=== PATIENT | female | born 1970 | race American Indian/Alaskan Native ===

== ENCOUNTER 2017-09-03 08:29 | Inpatient (IN) | payer BC ==
[2017-09-03] MEDS ORDERED: Sodium Chloride 0.9% 1,000 ML IV STA (09:44)
[2017-09-03 09:57] LABS: BASO # 0.1 K/uL (0.0-0.2); BASO % 0.8 % (0.0-2.0); EOS % 0.2 % (0.0-4.0); HEMOGLOBIN 13.6 g/dL (12.0-16.0); LYMPH # 1.3 K/uL (1.0-4.3); LYMPH % 12.3 % (20.0-40.0); MEAN CELL VOLUME 80.1 fl (81.0-99.0); MEAN CORPUSCULAR HEMOGLOBIN 27.6 pg (27.0-31.0); MEAN CORPUSCULAR HGB CONC 34.4 g/dL (33.0-37.0); MEAN PLATELET VOLUME 7.9 fl (7.2-11.7); MONO # 0.5 K/uL (0.0-0.8); MONO % 4.6 % (0.0-10.0); NEUT # 8.4 K/uL (1.8-7.0); NEUT % 82.1 % (50.0-75.0); NRBC % 0.1 % (0.0-0.0); RBC 4.93 Mil/uL (3.80-5.20); RED CELL DISTRIBUTION WIDTH 13.9 % (11.5-14.5); WHITE BLOOD COUNT 10.3 K/uL (4.8-10.8)
--- NOTE | 2017-09-03 09:58 | ED PDOC ---
HPI: Abdomen Time Seen by Provider: 09/03/17 09:06 Chief Complaint (Nursing): Abdominal Pain Chief Complaint (Provider): Abdominal Pain History Per: Patient History/Exam Limitations: no limitations Onset/Duration Of Symptoms: Days (x2) Current Symptoms Are (Timing): Still Present Additional Complaint(s): 47 year old female presents to the emergency department complaining of constant abdominal pain onset two days. Patient states today she experienced one episode of nausea and vomiting, but denies fever, constipation, and diarrhea. PMD: Bailey Martin Past Medical History Reviewed: Historical Data, Nursing Documentation, Vital Signs Vital Signs: Last Vital Signs Temp 98 F 09/05/17 13:30 Pulse 107 H 09/05/17 13:30 Resp 19 09/05/17 13:30 BP 129/87 09/05/17 13:30 Pulse Ox 98 09/05/17 13:30 - Medical History PMH: HTN - Surgical History Other surgeries: bilateral oophorectomy - Family History Family History: States: Unknown Family Hx - Social History Current smoker - smoking cessation education provided: No Alcohol: None Drugs: Denies - Home Medications Home Medications: Ambulatory Orders Medication Instructions Recorded Hydrochlorothiazide [Microzide] 12.5 mg PO DAILY 09/03/17 Omeprazole Magnesium [Prilosec Otc] 20 mg PO DAILY 09/03/17 Venlafaxine [Effexor XR] tab PO DAILY 09/03/17 - Allergies Allergies/Adverse Reactions: Allergies Allergy/AdvReac Type Severity Reaction Status Date / Time Penicillins Allergy RASH Verified 09/03/17 09:00 Review of Systems ROS Statement: Except As Marked, All Systems Reviewed And Found Negative Constitutional: Negative for: Fever Gastrointestinal: Positive for: Nausea (x1), Vomiting (x1), Abdominal Pain ( constant). Negative for: Diarrhea, Constipation Physical Exam - Reviewed Nursing Documentation Reviewed: Yes Vital Signs Reviewed: Yes - Physical Exam Appears: Positive for: In Acute Distress (mild) Head Exam: Positive for: ATRAUMATIC, NORMOCEPHALIC Skin: Positive for: Normal Color, Warm, Dry Eye Exam: Positive for: Normal appearance Cardiovascular/Chest: Positive for: Regular Rate, Rhythm. Negative for: Murmur Respiratory: Positive for: Normal Breath Sounds. Negative for: Accessory Muscle Use, Respiratory Distress Gastrointestinal/Abdominal: Positive for: Normal Exam, Soft, Tenderness (RUQ), Other (positive underwood's sign) Back: Positive for: Normal Inspection. Negative for: L CVA Tenderness, R CVA Tenderness, Vertebral Tenderness Extremity: Positive for: Normal ROM Neurologic/Psych: Positive for: Alert, Oriented (x3). Negative for: Motor/ Sensory Deficits - Laboratory Results Result Diagrams: 09/05/17 05:45 09/05/17 05:45 - ECG O2 Sat by Pulse Oximetry: 98 (RA) Pulse Ox Interpretation: Normal Medical Decision Making Medical Decision Making: Initial Impression: abdomen pain, cholecystitis Time: 09:41 Initial Plan: --EKG --CMP --Lipase --Urine --Urine dipstick --CBC with differntial --PTT / PT --Morphine 2mg IV --Sodium chloride 0.9% 1000ml IV --Zofan 4mg IV --UA --Abdomen US Limited (GB included) 11:05 Abdomen US FINDINGS: LIVER: Measures 15.9 cm in length. Normal echogenicity of the liver parenchyma. No mass. No intrahepatic bile duct dilatation. GALLBLADDER: Cholelithiasis with gallbladder wall thickening/ edema and trace pericholecystic fluid. Sonographic Underwood's sign was elicited. COMMON BILE DUCT: Measures 5 mm. No stones. No dilatation. PANCREAS: Unremarkable as visualized. No mass. No ductal dilatation. RIGHT KIDNEY: Measures 10.1 x 4.4 x 4.6 cm in length. Normal echogenicity. No calculus, mass, or hydronephrosis. AORTA: No aneurysmal dilatation. IVC: Unremarkable. OTHER FINDINGS: None . IMPRESSION: Acute cholecystitis. Findings conveyed to Dr. Negrete by Dr. Nieves at 11:05 a.m 11:14 Case discussed with operating room surgical technologist and Dr. Fermin. Scribe Attestation: Documented by Etelvina Anodide, acting as a scribe for Fe Negrete MD. Provider Scribe Attestation: All medical entries made by the Scribe were at my direction and personally dictated by me. I have reviewed the chart and agree that the record accurately reflects my personal performance of the history, physical exam, medical decision making, and the department course for this patient. I have also personally directed, reviewed, and agree with the discharge instructions and disposition. Disposition - Clinical Impression Clinical Impression: Acute cholecystitis - Patient ED Disposition Is Patient to be Admitted: Yes - Disposition Disposition Time: 11:14 Condition: STABLE - Pt Status Changed To: Hospital Disposition Of: Inpatient - Admit Certification Admit to Inpatient:: After my assessment, the patient will require hospitalization for at least two midnights. This is because of the severity of symptoms shown, intensity of services needed, and/or the medical risk in this patient being treated as an outpatient. - POA Present On Arrival: None
[2017-09-03 10:06] LABS: SQUAMOUS EPITHIAL 1 /hpf (0-5); URINE AMORPHOUS SEDIMENT RARE /ul (<OCC); URINE BACTERIA RARE (<OCC); URINE BILIRUBIN NEGATIVE (NEGATIVE); URINE CLARITY CLOUDY (Clear); URINE COLOR YELLOW (YELLOW); URINE GLUCOSE (UA) NEG (Normal); URINE LEUKOCYTE ESTERASE TRACE Leu/uL (Negative); URINE PROTEIN 100 mg/dL (NEGATIVE); URINE UROBILINOGEN 0.2-1.0 mg/dL (0.2-1.0)
[2017-09-03 10:07] LABS: URINE BLOOD MODERATE (NEGATIVE)
[2017-09-03 10:08] LABS: INR 1.1 (0.9-1.2); PARTIAL THROMBOPLASTIN TIME 31.6 Seconds (25.6-37.1); PROTHROMBIN TIME 12.2 Seconds (9.8-13.1)
[2017-09-03 10:12] LABS: ALB/GLOB RATIO 1.1 (1.0-2.1); ALBUMIN 4.2 g/dL (3.5-5.0); ALT/SGPT 22 U/L (9-52); AST/SGOT 22 U/L (14-36); BLOOD UREA NITROGEN 7 mg/dl (7-17); CALCIUM 9.5 mg/dL (8.4-10.2); GFR AFRICAN-AMERICAN > 60; GFR NON-AFRICAN AMERICAN > 60; LIPASE 26 U/L (23-300)
[2017-09-03] MEDS ORDERED: Morphine 4 MG/ML VIAL ONE (10:13)
[2017-09-03] MEDS ORDERED: metroNIDAZOLE 500mg/100ml NS 100 ML IV STA (11:08)
[2017-09-03] MEDS ORDERED: Ciprofloxacin 400mg/200ml D5W 400 MG/200 ML BAG IV STA (11:08)
--- NOTE | 2017-09-03 11:08 | US ---
HISTORY: RUE pain COMPARISON: None. TECHNIQUE: Sonographic evaluation of the right upper quadrant of the abdomen. FINDINGS: LIVER: Measures 15.9 cm in length. Normal echogenicity of the liver parenchyma. No mass. No intrahepatic bile duct dilatation. GALLBLADDER: Cholelithiasis with gallbladder wall thickening/ edema and trace pericholecystic fluid. Sonographic Underwood's sign was elicited. COMMON BILE DUCT: Measures 5 mm. No stones. No dilatation. PANCREAS: Unremarkable as visualized. No mass. No ductal dilatation. RIGHT KIDNEY: Measures 10.1 x 4.4 x 4.6 cm in length. Normal echogenicity. No calculus, mass, or hydronephrosis. AORTA: No aneurysmal dilatation. IVC: Unremarkable. OTHER FINDINGS: None . IMPRESSION: Acute cholecystitis. Findings conveyed to Dr. Negrete by Dr. Nieves at 11:05 a.m. on 09/03/2017.
[2017-09-03] MEDS ORDERED: metroNIDAZOLE 500mg/100ml NS 100 ML IVPB ONE (11:21)
--- NOTE | 2017-09-03 11:35 | CP.PCM.CON ---
History of Present Illness - History of Present Illness History of Present Illness: General Surgery Consult: Dr. Abreu 47F with PMHx of HTN, breast CA, presents to [facility] ED with complaints of abdominal pain. Patient reports pain began 3 days ago. States pain woke her up. Patient says she ate a large bow of spaghetti prior to going to bed. She has had multiple bouts of emesis over the past 3 days and currently reports nausea. Patient reports pain began along epigastrium and it has now localized to right upper quadrant. She says she has never felt these types of symptoms in the past. PMHx: as stated above PSurgHx: B/l mastectomy, b/l salpingo-oophorectomy Fam Hx: Breast CA BRCA+ Soc Hx: EtOH use (socially), occasional marijuana use, denies smoking Allergies: Penicillin Review of Systems - Review of Systems Review of Systems: 12 pt ROS unremarkable, except at stated in HPI Past Patient History - Past Social History Alcohol: None Drugs: Denies - CARDIAC Hx Hypertension: Yes - PSYCHIATRIC Hx Substance Use: No - SURGICAL HISTORY Hx Surgeries: Yes Hx Mastectomy: Yes Meds Allergies/Adverse Reactions: Allergies Allergy/AdvReac Type Severity Reaction Status Date / Time Penicillins Allergy RASH Verified 09/03/17 09:00 - Medications Medications: Current Medications Ciprofloxacin (Cipro 400mg/200ml Dsw) 400 mg in 200 mls @ 200 mls/hr IV STAT STA PRN Reason: Protocol Stop: 09/03/17 12:07 Metronidazole (Flagyl 500mg/100ml Ns) 100 mls @ 100 mls/hr IV STAT STA PRN Reason: Protocol Stop: 09/03/17 12:07 Last Admin: 09/03/17 11:21 Dose: 100 mls/hr Physical Exam - Constitutional Appears: No Acute Distress - Head Exam Head Exam: NORMOCEPHALIC - Eye Exam Eye Exam: Normal appearance - ENT Exam ENT Exam: Mucous Membranes Moist - Respiratory Exam Respiratory Exam: NORMAL BREATHING PATTERN - Cardiovascular Exam Cardiovascular Exam: +S1, +S2 - GI/Abdominal Exam GI & Abdominal Exam: Guarding, Soft, Tenderness. absent: Distended, Firm, Rigid Additional comments: +RUQ tenderness +Underwood's - Neurological Exam Neurological exam: Alert, Oriented x3 - Psychiatric Exam Psychiatric exam: Normal Mood - Skin Skin Exam: Dry, Intact, Warm Results - Vital Signs Recent Vital Signs: Last Vital Signs Temp 98.7 F 09/03/17 11:30 Pulse 81 09/03/17 11:30 Resp 16 09/03/17 11:30 BP 183/106 H 09/03/17 11:30 Pulse Ox 99 09/03/17 11:30 - Labs Result Diagrams: 09/03/17 09:53 09/03/17 09:53 Labs: Laboratory Results - last 24 hr 09/03/17 09/03/17 09/03/17 09:53 09:53 09:53 WBC 10.3 RBC 4.93 Hgb 13.6 Hct 39.5 MCV 80.1 L MCH 27.6 MCHC 34.4 RDW 13.9 Plt Count 324 MPV 7.9 Neut % (Auto) 82.1 H Lymph % (Auto) 12.3 L [place] % (Auto) 4.6 Eos % (Auto) 0.2 Baso % (Auto) 0.8 Neut # (Auto) 8.4 H Lymph # (Auto) 1.3 [place] # (Auto) 0.5 Eos # (Auto) 0.0 Baso # (Auto) 0.1 PT 12.2 INR 1.1 APTT 31.6 Sodium 140 Potassium 4.0 Chloride 99 Carbon Dioxide 28 Anion Gap 17 BUN 7 Creatinine 0.6 L Est GFR ( Amer) > 60 Est GFR (Non-Af Amer) > 60 Random Glucose 118 H Calcium 9.5 Total Bilirubin 1.1 AST 22 ALT 22 Alkaline Phosphatase 90 Total Protein 8.1 Albumin 4.2 Globulin 3.9 Albumin/Globulin Ratio 1.1 Lipase 26 Urine Color Urine Clarity Urine pH Ur Specific [place] Urine Protein Urine Glucose (UA) Urine Ketones Urine Blood Urine Nitrate Urine Bilirubin Urine Urobilinogen Ur Leukocyte Esterase Urine RBC (Auto) Urine Microscopic WBC Ur Squamous Epith Cells Amorphous Sediment Urine Bacteria 09/03/17 09:53 WBC RBC Hgb Hct MCV MCH MCHC RDW Plt Count MPV Neut % (Auto) Lymph % (Auto) [place] % (Auto) Eos % (Auto) Baso % (Auto) Neut # (Auto) Lymph # (Auto) [place] # (Auto) Eos # (Auto) Baso # (Auto) PT INR APTT Sodium Potassium Chloride Carbon Dioxide Anion Gap BUN Creatinine Est GFR ( Amer) Est GFR (Non-Af Amer) Random Glucose Calcium Total Bilirubin AST ALT Alkaline Phosphatase Total Protein Albumin Globulin Albumin/Globulin Ratio Lipase Urine Color Yellow Urine Clarity Cloudy Urine pH 7.0 Ur Specific [place] 1.027 Urine Protein 100 Urine Glucose (UA) Neg Urine Ketones Negative Urine Blood Moderate Urine Nitrate Negative Urine Bilirubin Negative Urine Urobilinogen 0.2-1.0 Ur Leukocyte Esterase Trace Urine RBC (Auto) 15 H Urine Microscopic WBC 5 Ur Squamous Epith Cells 1 Amorphous Sediment Rare H Urine Bacteria Rare - Imaging and Cardiology US - abdomen Status: Image reviewed by me, Report reviewed by me Assessment & Plan - Assessment and Plan (Free Text) Assessment: 47F with acute cholecystitis Plan: -NPO -IVF -ABx -analgesic/anti-emetic prn -DVT ppx -Will plan for OR for laparoscopic cholecystectomy on Tuesday AM D/w Dr. Brady GAYLE PGY2
[2017-09-03] MEDS ORDERED: HYDROmorphone 1 mg/ml ISec IVP STA (11:39)
[2017-09-03] MEDS ORDERED: HYDROmorphone 0.5 mg/0.5 ml ISec ONE (11:42)
[2017-09-03] MEDS ORDERED: Ciprofloxacin 400mg/200ml D5W 400 MG/200 ML BAG IVPB ONE (12:31)
[2017-09-03] MEDS: HYDROmorphone 0.5 mg/0.5 ml ISec IVP PRN ×4 (13:44→23:02)
[2017-09-03] MEDS: metroNIDAZOLE 500mg/100ml NS 100 ML IVPB SCH (16:39)
[2017-09-03] MEDS: Lactated Ringer's 1,000 ML IV SCH ×2 (20:35→21:30)
[2017-09-03] MEDS: Ciprofloxacin 400mg/200ml D5W 400 MG/200 ML BAG IVPB SCH (21:04)
[2017-09-04] MEDS: metroNIDAZOLE 500mg/100ml NS 100 ML IVPB SCH ×3 (01:17→17:30)
[2017-09-04] MEDS: HYDROmorphone 0.5 mg/0.5 ml ISec IVP PRN ×5 (03:29→20:23)
[2017-09-04] MEDS: Lactated Ringer's 1,000 ML IV SCH ×3 (05:30→21:32)
--- NOTE | 2017-09-04 08:46 | CP.PCM.PN ---
Subjective - Date & Time of Evaluation Date of Evaluation: 09/04/17 Time of Evaluation: 07:15 - Subjective Subjective: Surgery- Dr. Abreu Patient seen and examined at bedside this AM. ABD pain still present, however better than yesterday. Currently NPO. +OOB and ambulate. Denies vomiting, fevers, chills. pt is aware and agreeable for surgery tomorrow. Objective - Vital Signs/Intake and Output Vital Signs (last 24 hours): Temp Pulse Resp BP Pulse Ox 99 F 85 20 142/81 96 09/04/17 02:28 09/04/17 00:34 09/04/17 00:34 09/04/17 00:34 09/04/17 00:34 - Medications Medications: Current Medications Acetaminophen (Tylenol 325mg Tab) 650 mg PO Q6 PRN PRN Reason: Fever >100.4 F Acetaminophen (Tylenol 650 Mg Supp) 650 mg IA Q4 PRN PRN Reason: Fever >100.4 F Last Admin: 09/04/17 01:28 Dose: 650 mg Amlodipine Besylate (Norvasc) 5 mg PO DAILY [facility] Last Admin: 09/03/17 19:10 Dose: 5 mg Hydromorphone HCl (Dilaudid) 0.5 mg IVP Q3 PRN PRN Reason: Pain, moderate (4-7) Last Admin: 09/04/17 08:43 Dose: 0.5 mg Ciprofloxacin (Cipro 400mg/200ml Dsw) 400 mg in 200 mls @ 200 mls/hr IVPB Q12 МАРИЯ PRN Reason: Protocol Last Admin: 09/03/17 21:04 Dose: 200 mls/hr Metronidazole (Flagyl 500mg/100ml Ns) 100 mls @ 100 mls/hr IVPB Q8 МАРИЯ PRN Reason: Protocol Last Admin: 09/04/17 01:17 Dose: 100 mls/hr Lactated Ringer's (Lactated Ringer's) 1,000 mls @ 125 mls/hr IV .Q8H [facility] Last Admin: 09/03/17 21:30 Dose: Not Given Ondansetron HCl (Zofran Inj) 4 mg IVP Q6 PRN PRN Reason: Nausea/Vomiting Pantoprazole Sodium (Protonix Inj) 40 mg IVP DAILY [facility] Last Admin: 09/03/17 19:09 Dose: 40 mg - Labs Labs: 09/03/17 09:53 09/03/17 09:53 PT 12.2 Seconds (9.8-13.1) 09/03/17 09:53 INR 1.1 (0.9-1.2) 09/03/17 09:53 APTT 31.6 Seconds (25.6-37.1) 09/03/17 09:53 - Constitutional Appears: Non-toxic, No Acute Distress - Head Exam Head Exam: ATRAUMATIC - Eye Exam Eye Exam: EOMI. absent: Scleral icterus - ENT Exam ENT Exam: Mucous Membranes Moist - Respiratory Exam Respiratory Exam: NORMAL BREATHING PATTERN. absent: Accessory Muscle Use, Respiratory Distress - Cardiovascular Exam Cardiovascular Exam: +S1, +S2. absent: Bradycardia, Tachycardia - GI/Abdominal Exam GI & Abdominal Exam: Soft, Tenderness - Extremities Exam Extremities Exam: Normal Inspection. absent: Calf Tenderness - Neurological Exam Neurological Exam: Alert, Awake, Oriented x3 - Psychiatric Exam Psychiatric exam: Normal Affect - Skin Skin Exam: Intact, Warm Assessment and Plan - Assessment and Plan (Free Text) Assessment: 47F w/ acute cholecystitis Plan: -NPO -IVF -ABx -analgesic/anti-emetic prn -GI/DVTppx -Will plan for OR for laparoscopic cholecystectomy on Tuesday AM PGY1
[2017-09-04] MEDS: Ciprofloxacin 400mg/200ml D5W 400 MG/200 ML BAG IVPB SCH ×2 (09:17→21:13)
[2017-09-04 20:58] LABS: ALBUMIN 3.6 g/dL (3.5-5.0); ALT/SGPT 23 U/L (9-52); AST/SGOT 18 U/L (14-36); BLOOD UREA NITROGEN 7 mg/dl (7-17); CALCIUM 8.9 mg/dL (8.4-10.2); GFR AFRICAN-AMERICAN > 60; GFR NON-AFRICAN AMERICAN > 60
[2017-09-04 21:05] LABS: BASO # 0.1 K/uL (0.0-0.2); BASO % 0.8 % (0.0-2.0); EOS % 0.1 % (0.0-4.0); HEMOGLOBIN 12.1 g/dL (12.0-16.0); LYMPH # 2.2 K/uL (1.0-4.3); LYMPH % 16.8 % (20.0-40.0); MEAN CELL VOLUME 80.5 fl (81.0-99.0); MEAN CORPUSCULAR HGB CONC 33.5 g/dL (33.0-37.0); MEAN PLATELET VOLUME 8.1 fl (7.2-11.7); MONO # 0.9 K/uL (0.0-0.8); MONO % 7.2 % (0.0-10.0); NEUT # 9.7 K/uL (1.8-7.0); NEUT % 75.1 % (50.0-75.0); NRBC % 0.1 % (0.0-0.0); RBC 4.49 Mil/uL (3.80-5.20); RED CELL DISTRIBUTION WIDTH 13.8 % (11.5-14.5)
[2017-09-04] MEDS ORDERED: Potassium Chloride 40 MEQ in Lactated Ringer's 1,000 ML IV SCH (22:00)
[2017-09-05] MEDS: HYDROmorphone 0.5 mg/0.5 ml ISec IVP PRN ×3 (00:07→07:12)
[2017-09-05] MEDS: Potassium Chl 40 mEq in D5-1/2 1,000 ML IV SCH ×2 (00:08→06:14)
[2017-09-05] MEDS: metroNIDAZOLE 500mg/100ml NS 100 ML IVPB SCH ×2 (00:09→16:23)
[2017-09-05] MEDS: Lactated Ringer's 1,000 ML IV SCH ×3 (06:14→20:55)
[2017-09-05 06:15] LABS: BASO # 0.1 K/uL (0.0-0.2); BASO % 0.5 % (0.0-2.0); EOS % 0.3 % (0.0-4.0); HEMOGLOBIN 11.7 g/dL (12.0-16.0); LYMPH # 1.9 K/uL (1.0-4.3); LYMPH % 16.3 % (20.0-40.0); MEAN CELL VOLUME 79.4 fl (81.0-99.0); MEAN CORPUSCULAR HEMOGLOBIN 27.3 pg (27.0-31.0); MEAN CORPUSCULAR HGB CONC 34.4 g/dL (33.0-37.0); MEAN PLATELET VOLUME 7.8 fl (7.2-11.7); MONO # 0.9 K/uL (0.0-0.8); NEUT # 8.7 K/uL (1.8-7.0); NEUT % 74.9 % (50.0-75.0); RBC 4.31 Mil/uL (3.80-5.20); RED CELL DISTRIBUTION WIDTH 13.7 % (11.5-14.5); WHITE BLOOD COUNT 11.6 K/uL (4.8-10.8)
[2017-09-05 06:37] LABS: ALBUMIN 3.4 g/dL (3.5-5.0); ALT/SGPT 17 U/L (9-52); AST/SGOT 17 U/L (14-36); BLOOD UREA NITROGEN 6 mg/dl (7-17); CALCIUM 8.7 mg/dL (8.4-10.2); GFR AFRICAN-AMERICAN > 60; GFR NON-AFRICAN AMERICAN > 60
[2017-09-05] MEDS ORDERED: Lidocaine 2% Inj (20ml) ONE (07:27)
[2017-09-05] MEDS ORDERED: Bupivacaine HCl 0.25% PF (30 ml) Inj ONE (07:27)
[2017-09-05] MEDS ORDERED: Rocuronium 10 mg/ml (5 ml) ONE ×2 (07:29→09:39)
[2017-09-05] MEDS ORDERED: Succinylcholine 200 mg/10 ml Inj IV ONE (07:29)
[2017-09-05] MEDS ORDERED: Lidocaine 4% (Laryng-O-Jet) Kit MM ONE (07:29)
[2017-09-05] MEDS ORDERED: Propofol 10 mg/ml Inj (20 ML) ONE (07:29)
[2017-09-05] MEDS ORDERED: Neostigmine 1:1000 (1 mg/ml) Inj ONE (07:29)
[2017-09-05] MEDS ORDERED: Phenylephrine 10 mg/ml Inj ONE (07:33)
[2017-09-05] MEDS ORDERED: Iohexol 300 100 ML IJ ONE (07:51)
--- NOTE | 2017-09-05 08:05 | CP.PCM.HP ---
History of Present Illness - History of Present Illness History of Present Illness: This is a 47 y/o female admitted for worsening of abdominal pain which started 2 days ago initially as epigastric pain a then periumbilical then persisted as RUQ pain. There was no vomiting or diarrhea but claims to have nausea . She was noted to have low grade fever. Has been fairly well. Has hx of HTN and on HCTZ. She also takes Effexor. Has a hx of oophorectomy. US showed cholecystitis. Present on Admission - Present on Admission Any Indicators Present on Admission: No History of DVT/PE: No History of Uncontrolled Diabetes: No Urinary Catheter: No Decubitus Ulcer Present: No Past Patient History - Past Medical History & Family History Past Medical History?: Yes - Past Social History Smoking Status: Light Smoker < 10 Cigarettes Daily - CARDIAC Hx Hypertension: Yes - MUSCULOSKELETAL/RHEUMATOLOGICAL Hx Falls: No - PSYCHIATRIC Hx Substance Use: No - SURGICAL HISTORY Hx Surgeries: Yes Hx Mastectomy: Yes - ANESTHESIA Hx Anesthesia: Yes Hx Anesthesia Reactions: No Hx Malignant Hyperthermia: No Meds Allergies/Adverse Reactions: Allergies Allergy/AdvReac Type Severity Reaction Status Date / Time Penicillins Allergy RASH Verified 09/03/17 09:00 Physical Exam - Eye Exam Eye Exam: Normal appearance - ENT Exam ENT Exam: Mucous Membranes Moist - Respiratory Exam Respiratory Exam: Clear to Auscultation Bilateral - Cardiovascular Exam Cardiovascular Exam: REGULAR RHYTHM - GI/Abdominal Exam GI & Abdominal Exam: Hyperactive Bowel Sounds, Tenderness - Neurological Exam Neurological exam: CN II-XII Intact, Oriented x3, Reflexes Normal Results - Vital Signs Recent Vital Signs: Last Vital Signs Temp 98.9 F 09/05/17 07:15 Pulse 119 H 09/05/17 07:15 Resp 19 09/05/17 07:15 BP 128/79 09/05/17 07:15 Pulse Ox 97 09/05/17 07:15 - Labs Result Diagrams: 09/05/17 05:45 09/05/17 05:45 Labs: Laboratory Results - last 24 hr 09/04/17 09/04/17 09/05/17 20:43 20:43 05:45 WBC 13.0 H 11.6 H RBC 4.49 4.31 Hgb 12.1 11.7 L Hct 36.1 34.2 MCV 80.5 L 79.4 L MCH 27.0 27.3 MCHC 33.5 34.4 RDW 13.8 13.7 Plt Count 278 273 MPV 8.1 7.8 Neut % (Auto) 75.1 H 74.9 Lymph % (Auto) 16.8 L 16.3 L [place] % (Auto) 7.2 8.0 Eos % (Auto) 0.1 0.3 Baso % (Auto) 0.8 0.5 Neut # (Auto) 9.7 H 8.7 H Lymph # (Auto) 2.2 1.9 [place] # (Auto) 0.9 H 0.9 H Eos # (Auto) 0.0 0.0 Baso # (Auto) 0.1 0.1 ESR 62 H Sodium 136 Potassium 3.4 L Chloride 99 Carbon Dioxide 24 Anion Gap 16 BUN 7 Creatinine 0.5 L Est GFR ( Amer) > 60 Est GFR (Non-Af Amer) > 60 Random Glucose 93 Calcium 8.9 Total Bilirubin 1.6 H AST 18 ALT 23 Alkaline Phosphatase 74 Total Protein 7.2 Albumin 3.6 Globulin 3.7 Albumin/Globulin Ratio 1.0 09/05/17 05:45 WBC RBC Hgb Hct MCV MCH MCHC RDW Plt Count MPV Neut % (Auto) Lymph % (Auto) [place] % (Auto) Eos % (Auto) Baso % (Auto) Neut # (Auto) Lymph # (Auto) [place] # (Auto) Eos # (Auto) Baso # (Auto) ESR Sodium 139 Potassium 3.6 Chloride 101 Carbon Dioxide 27 Anion Gap 15 BUN 6 L Creatinine 0.5 L Est GFR ( Amer) > 60 Est GFR (Non-Af Amer) > 60 Random Glucose 113 H Calcium 8.7 Total Bilirubin 1.2 AST 17 ALT 17 Alkaline Phosphatase 74 Total Protein 6.9 Albumin 3.4 L Globulin 3.5 Albumin/Globulin Ratio 1.0 Assessment & Plan (1) Cholecystitis Status: Acute (2) Hypertension Status: Acute - Assessment and Plan (Free Text) Plan: Keep NPO surgical eval IV antibiotics Pain meds IV fluids protonix Medically stable for surgery
[2017-09-05] MEDS ORDERED: Lactated Ringer's 1,000 ML IV ONE ×2 (08:15→09:45)
[2017-09-05] MEDS ORDERED: Midazolam 2 MG/2 ML VIAL ONE (08:17)
[2017-09-05] MEDS ORDERED: metroNIDAZOLE 500mg/100ml NS IVPB ONE (08:25)
[2017-09-05] MEDS ORDERED: Ciprofloxacin 400mg/200ml D5W IVPB ONE (08:35)
--- NOTE | 2017-09-05 10:06 | CP.PCM.CON ---
History of Present Illness - History of Present Illness History of Present Illness: 47F with PMHx of HTN, breast CA, presents to [facility] ED with complaints of RUQ abdominal pain. + assoc nausea and vomiting Dx acute cholecystitis For OR and cholecystectomy + PCN allergy Started Flagyl and Cipro IV PMHx: as stated above PSurgHx: B/l mastectomy, b/l salpingo-oophorectomy Fam Hx: Breast CA BRCA+ Soc Hx: EtOH use (socially), occasional marijuana use, denies smoking Allergies: Penicillin Review of Systems - Review of Systems All systems: reviewed and no additional remarkable complaints except - Constitutional Constitutional: As Per HPI - EENT Eyes: absent: As Per HPI, Blind Spots, Blurred Vision, Change in Vision, Decreased Night Vision, Diplopia, Discharge, Dry Eye, Exophthalmos, Floaters, Irritation, Itchy Eyes, Loss of Peripheral Vision, Pain, Photophobia, Requires Corrective Lenses, Sees Flashes, Spots in Vision, Tunnel Vision, Other Visual Disturbances, Loss of Vision, Other Ears: absent: As Per HPI, Decreased Hearing, Ear Discharge, Ear Pain, Tinnitus, Abnormal Hearing, Disequilibrium, Dizziness, Other Nose/Mouth/Throat: absent: As Per HPI, Epistaxis, Nasal Congestion, Nasal Discharge, Nasal Obstruction, Nasal Trauma, Nose Pain, Post Nasal Drip, Sinus Pain, Sinus Pressure, Bleeding Gums, Change in Voice, Dental Pain, Dry Mouth, Dysphagia, Halitosis, Hoarsness, Lip Swelling, Mouth Lesions, Mouth Pain, Odynophagia, Sore Throat, Throat Swelling, Tongue Swelling, Facial Pain, Neck Pain, Neck Mass, Other - Breasts Breasts: absent: As Per HPI, Change in Shape, Mass, Pain, Nipple Discharge, Nipple Inversion, Skin Changes, Swelling, Other - Cardiovascular Cardiovascular: absent: As Per HPI, Acrocyanosis, Chest Pain, Chest Pain at Rest , Chest Pain with Activity, Claudication, Diaphoresis, Dyspnea, Dyspnea on Exertion, Edema, Irregular Heart Rhythm, Pain Radiating to Arm/Neck/Jaw, Leg Edema, Leg Ulcers, Lightheadedness, Orthopnea, Palpitations, Paroxysmal Nocturnal Dyspnea, Pedal Edema, Radiating Pain, Rapid Heart Rate, Slow Heart Rate, Syncope, Other - Respiratory Respiratory: absent: As Per HPI, Cough, Dyspnea, Hemoptysis, Dyspnea on Exertion , Wheezing, Snoring, Stridor, Pain on Inspiration, Chest Congestion, Excessive Mucous Production, Change in Mucous Color, Pain with Coughing, Other - Gastrointestinal Gastrointestinal: As Per HPI - Genitourinary Genitourinary: absent: As Per HPI, Change in Urinary Stream, Difficulty Urinating, Dysuria, Flank Pain, Hematuria, Pyuria, Nocturia, Urinary Incontinence, Urinary Frequency, Urinary Hesitance, Urinary Urgency, Voiding Freq/Small Amts, Freq UTI, Hx Renal/Bladder Calculi, Hx /Renal Surgery, Bladder Distension, Other - Reproductive: Female Reproductive:Female: absent: As Per HPI, Amenorrhea, Amenorrhea/ Control, Currently Menstual, Cycle <21 Days, Cycle >35 Days, Cycle Variable, Menses 1-7 Days, Menses >/= 8 Days, Menses Variable, Cycle > 4 Weeks Between, No Menses for 6 Months, Heavy Menses, Light Menses, Normal Menses, Spotting Between Cycles , S/P Hysterectomy, Menopausal, Post Menopausal, Premenarche, Abnormal Vaginal Bleeding, Dysmenorrhea, Dyspareunia, Genital Lesions, Genital Pruritis, Pelvic Pain, Prolapse Symptoms, Sexual Dysfunction, Vaginal Discharge, Vaginal Dryness , Vaginal Odor, Vaginal Pruritis, Other - Menstruation Menstruation: absent: As Per HPI, Amenorrhea, Amenorrhea/ Control, Currently Menstual, Cycle <21 Days, Cycle >35 Days, Cycle Variable, Menses 1-7 Days, Menses >/= 8 Days, Menses Variable, Cycle > 4 Weeks Between, No Menses for 6 Months, Heavy Menses, Light Menses, Normal Menses, Spotting Between Cycles , S/P Hysterectomy, Menopausal, Post Menopausal, Premenarche, Abnormal Vaginal Bleeding, Dysmenorrhea, Other - Musculoskeletal Musculoskeletal: absent: As Per HPI, Abnormal Gait, Arthralgias, Atrophy, Back Pain, Deformity, Joint Swelling, Limited Range of Motion, Loss of Height, Muscle Cramps, Muscle Weakness, Myalgias, Neck Pain, Numbness, Radiating Pain into Limb, Stiffness, Tingling, Other - Integumentary Integumentary: absent: As Per HPI, Acne, Alopecia, Bleeding Lesions, Change in Hair, Change in Nails, Change in Pigmentation, Changing Lesions, Dry Skin, Erythema, Furuncle, Hirsutism, Lesions, New Lesions, Non-Healing Lesions, Photosensitivity, Pruritus, Rash, Skin Pain, Skin Ulcer, Sores, Striae, Swelling , Unusual Bruising, Wounds, Jaundice, Other - Neurological Neurological: absent: As Per HPI, Abnormal Gait, Abnormal Hearing, Abnormal Movements, Abnormal Speech, Behavioral Changes, Burning Sensations, Confusion, Convulsions, Disequilibrium, Dizziness, Numbness, Focal Weakness, Frequent Falls , Headaches, Lack of Coordination, Loss of Vision, Memory Loss, Paresthesias, Radicular Pain, Restless Legs, Sensory Deficit, Syncope, Tingling, Tremor, Vertigo, Weakness, Other Visual Disturbances, Other - Psychiatric Psychiatric: absent: As Per HPI, Abnormal Sleep Pattern, Anhedonia, Anxiety, Auditory Hallucinations, Behavioral Changes, Change in Appetite, Change in Libido, Confusion, Depression, Difficulty Concentrating, Hallucinations, Homicidal Ideation, Hopelessness, Irritability, Memory Loss, Mood Swings, Panic Attacks, Paranoia, Suicidal Ideation, Visual Hallucinations, Tactile Hallucinations, Other - Endocrine Endocrine: absent: As Per HPI, Change in Body Appearance, Change in Libido, Cold Intolorance, Deepening of Voice, Excessive Sweating, Fatigue, Flushing, Heat Intolorance, Increase in Ring/Shoe/Hat Size, Palpitations, Polydipsia, Polyphagia, Polyuria, Other - Hematologic/Lymphatic Hematologic: absent: As Per HPI, Easy Bleeding, Easy Bruising, Lymphadenopathy, Other Past Patient History - Past Medical History & Family History Past Medical History?: Yes - Past Social History Smoking Status: Light Smoker < 10 Cigarettes Daily - CARDIAC Hx Hypertension: Yes - MUSCULOSKELETAL/RHEUMATOLOGICAL Hx Falls: No - PSYCHIATRIC Hx Substance Use: No - SURGICAL HISTORY Hx Surgeries: Yes Hx Mastectomy: Yes - ANESTHESIA Hx Anesthesia: Yes Hx Anesthesia Reactions: No Hx Malignant Hyperthermia: No Meds Allergies/Adverse Reactions: Allergies Allergy/AdvReac Type Severity Reaction Status Date / Time Penicillins Allergy RASH Verified 09/03/17 09:00 - Medications Medications: Current Medications Acetaminophen (Tylenol 325mg Tab) 650 mg PO Q6 PRN PRN Reason: Fever >100.4 F Acetaminophen (Tylenol 650 Mg Supp) 650 mg [place] Q4 PRN PRN Reason: Fever >100.4 F Last Admin: 09/04/17 01:28 Dose: 650 mg Amlodipine Besylate (Norvasc) 5 mg PO DAILY [facility] Last Admin: 09/04/17 15:30 Dose: 5 mg Hydromorphone HCl (Dilaudid) 0.5 mg IVP Q3 PRN PRN Reason: Pain, moderate (4-7) Last Admin: 09/05/17 07:12 Dose: 0.5 mg Ciprofloxacin (Cipro 400mg/200ml Dsw) 400 mg in 200 mls @ 200 mls/hr IVPB Q12 МАРИЯ PRN Reason: Protocol Last Admin: 09/04/17 21:13 Dose: 200 mls/hr Metronidazole (Flagyl 500mg/100ml Ns) 100 mls @ 100 mls/hr IVPB Q8 МАРИЯ PRN Reason: Protocol Last Admin: 09/05/17 00:09 Dose: 100 mls/hr Lactated Ringer's (Lactated Ringer's) 1,000 mls @ 125 mls/hr IV .Q8H [facility] Last Admin: 09/05/17 06:14 Dose: Not Given Ondansetron HCl (Zofran Inj) 4 mg IVP Q6 PRN PRN Reason: Nausea/Vomiting Pantoprazole Sodium (Protonix Inj) 40 mg IVP DAILY [facility] Last Admin: 09/03/17 19:09 Dose: 40 mg Physical Exam - Constitutional Appears: Non-toxic, Chronically Ill - Head Exam Head Exam: NORMOCEPHALIC - Eye Exam Eye Exam: PERRL - ENT Exam ENT Exam: Mucous Membranes Dry - Neck Exam Neck exam: Negative for: Lymphadenopathy - Respiratory Exam Respiratory Exam: Decreased Breath Sounds, Clear to Auscultation Bilateral - Cardiovascular Exam Cardiovascular Exam: REGULAR RHYTHM - GI/Abdominal Exam GI & Abdominal Exam: Diminished Bowel Sounds, Distended, Soft - Rectal Exam Rectal Exam: Deferred - Exam Exam: NORMAL INSPECTION - Extremities Exam Extremities exam: Negative for: pedal edema - Back Exam Back exam: absent: CVA tenderness (L), CVA tenderness (R) - Neurological Exam Neurological exam: Alert, CN II-XII Intact, Oriented x3, Reflexes Normal - Psychiatric Exam Psychiatric exam: Normal Mood - Skin Skin Exam: Dry Results - Vital Signs Recent Vital Signs: Last Vital Signs Temp 98.9 F 09/05/17 07:15 Pulse 119 H 09/05/17 07:15 Resp 19 09/05/17 07:15 BP 128/79 09/05/17 07:15 Pulse Ox 97 09/05/17 07:15 - Labs Result Diagrams: 09/05/17 05:45 09/05/17 05:45 Labs: Laboratory Results - last 24 hr 09/04/17 09/04/17 09/05/17 20:43 20:43 05:45 WBC 13.0 H 11.6 H RBC 4.49 4.31 Hgb 12.1 11.7 L Hct 36.1 34.2 MCV 80.5 L 79.4 L MCH 27.0 27.3 MCHC 33.5 34.4 RDW 13.8 13.7 Plt Count 278 273 MPV 8.1 7.8 Neut % (Auto) 75.1 H 74.9 Lymph % (Auto) 16.8 L 16.3 L Logan % (Auto) 7.2 8.0 Eos % (Auto) 0.1 0.3 Baso % (Auto) 0.8 0.5 Neut # (Auto) 9.7 H 8.7 H Lymph # (Auto) 2.2 1.9 Logan # (Auto) 0.9 H 0.9 H Eos # (Auto) 0.0 0.0 Baso # (Auto) 0.1 0.1 ESR 62 H Sodium 136 Potassium 3.4 L Chloride 99 Carbon Dioxide 24 Anion Gap 16 BUN 7 Creatinine 0.5 L Est GFR ( Amer) > 60 Est GFR (Non-Af Amer) > 60 Random Glucose 93 Calcium 8.9 Total Bilirubin 1.6 H AST 18 ALT 23 Alkaline Phosphatase 74 Total Protein 7.2 Albumin 3.6 Globulin 3.7 Albumin/Globulin Ratio 1.0 09/05/17 05:45 WBC RBC Hgb Hct MCV MCH MCHC RDW Plt Count MPV Neut % (Auto) Lymph % (Auto) Logan % (Auto) Eos % (Auto) Baso % (Auto) Neut # (Auto) Lymph # (Auto) Logan # (Auto) Eos # (Auto) Baso # (Auto) ESR Sodium 139 Potassium 3.6 Chloride 101 Carbon Dioxide 27 Anion Gap 15 BUN 6 L Creatinine 0.5 L Est GFR ( Amer) > 60 Est GFR (Non-Af Amer) > 60 Random Glucose 113 H Calcium 8.7 Total Bilirubin 1.2 AST 17 ALT 17 Alkaline Phosphatase 74 Total Protein 6.9 Albumin 3.4 L Globulin 3.5 Albumin/Globulin Ratio 1.0 Assessment & Plan (1) Cholecystitis Status: Acute - Assessment and Plan (Free Text) Assessment: For OR cont iv antibiotics will follow
[2017-09-05] MEDS ORDERED: HYDROmorphone 0.5 mg/0.5 ml ISec IVP PRN (10:48)
--- NOTE | 2017-09-05 10:50 | PCM.SURG1 ---
Surgeon's Initial Post Op Note - Surgeon's Notes Surgeon: Dr. Abreu Patient Registration Rep: Ambrosio PGY2; PGY1; Fabby PGY1 Type of Anesthesia: General Endo, Local Anesthesia Administered By: Dr. Arechiga Pre-Operative Diagnosis: Cholecystitis Operative Findings: See operative report Post-Operative Diagnosis: same Operation Performed: Laparoscopic Cholecystectomy Specimen/Specimens Removed: Gallbladder; Bile culture Estimated Blood Loss: EBL {In ML}: 50 Blood Products Given: N/A Drains Used: No Drains Post-Op Condition: Good Date of Surgery/Procedure: 09/05/17 Time of Surgery/Procedure: 10:54
[2017-09-05] MEDS ORDERED: Lactated Ringer's 1,000 ML IV SCH (11:00)
--- NOTE | 2017-09-05 11:31 | CARD ---
APPROVED REPORT EKG Measurement Heart [id number] <Conclusion> Sinus rhythm with marked sinus arrhythmia Otherwise normal ECG
[2017-09-05] MEDS: Ciprofloxacin 400mg/200ml D5W 400 MG/200 ML BAG IVPB SCH ×2 (20:52→20:53)
[2017-09-06] MEDS: metroNIDAZOLE 500mg/100ml NS 100 ML IVPB SCH ×2 (00:02→08:59)
--- NOTE | 2017-09-06 03:47 | CON ---
DATE: 09/05/2017 REFERRING DOCTOR: Dr. Fermin. REASON FOR CONSULTATION: Abdominal pain. HISTORY OF PRESENT ILLNESS: This is a pleasant 47-year-old female with history of burning abdominal pain and discomfort, epigastric, and some nausea and vomiting, all of which has resolved. The patient is status post OR for laparoscopic cholecystectomy, and she is doing much better afterwards. Currently lying in bed comfortably, no apparent distress. PAST MEDICAL HISTORY: As above. SURGICAL HISTORY: As above. MEDICATIONS: Have been reviewed. REVIEW OF SYSTEMS: All other systems have been reviewed and negative apart from the HPI. PHYSICAL EXAMINATION: VITAL SIGNS: In the hospital, grossly unremarkable. GENERAL: A pleasant middle-aged female, lying in bed comfortably, and in no apparent distress. HEENT: Head is normocephalic and atraumatic. Eyes: Pupils are equally reactive to light bilaterally. No conjunctival pallor or icterus. NECK: Supple. Normal range of motion. No lymphadenopathy appreciated. LUNGS: Coarse breath sounds bilaterally. HEART: S1, S2. Regular rate and rhythm. No murmurs appreciated. ABDOMEN: Soft and nontender. Some discomfort. No rebound. No guarding. RECTAL: Deferred. EXTREMITIES: Pulses felt bilaterally. SKIN: Warm, dry and intact. NEUROLOGIC: A and O x3. LABORATORY DATA: Labs and radiology have been reviewed. WBC 11.2, hemoglobin 11.7. LFTs, total bilirubin which was , now normal. Abdominal ultrasound shows few cholecystitis. ASSESSMENT AND PLAN: This is a 47-year-old female with acute cholecystitis. From GI standpoint, ____ stable, will need outpatient workup. Thank you for the consult. Shailesh Mccain MD/ PhD cc: Dr. Fermin
[2017-09-06 04:02] VITALS: PULSE 89
[2017-09-06 06:15] LABS: BASO % 0.2 % (0.0-2.0); HEMOGLOBIN 10.4 g/dL (12.0-16.0); LYMPH # 1.3 K/uL (1.0-4.3); LYMPH % 11.7 % (20.0-40.0); MEAN CORPUSCULAR HEMOGLOBIN 27.1 pg (27.0-31.0); MEAN CORPUSCULAR HGB CONC 33.9 g/dL (33.0-37.0); MEAN PLATELET VOLUME 8.1 fl (7.2-11.7); MONO # 0.8 K/uL (0.0-0.8); MONO % 7.5 % (0.0-10.0); NEUT # 9.1 K/uL (1.8-7.0); NEUT % 80.6 % (50.0-75.0); RBC 3.83 Mil/uL (3.80-5.20); RED CELL DISTRIBUTION WIDTH 13.6 % (11.5-14.5); WHITE BLOOD COUNT 11.4 K/uL (4.8-10.8)
[2017-09-06 06:50] LABS: ALB/GLOB RATIO 0.9 (1.0-2.1); ALBUMIN 3.1 g/dL (3.5-5.0); ALT/SGPT 36 U/L (9-52); AST/SGOT 39 U/L (14-36); BLOOD UREA NITROGEN 7 mg/dl (7-17); CALCIUM 8.6 mg/dL (8.4-10.2); GFR AFRICAN-AMERICAN > 60; GFR NON-AFRICAN AMERICAN > 60
[2017-09-06 08:02] VITALS: BP 119/79; RESP 18; TEMP 98.3; O2SAT 99
--- NOTE | 2017-09-06 08:32 | OP ---
PROCEDURE DATE: 09/05/17 PREOPERATIVE DIAGNOSIS: Acute and chronic cholecystitis. POSTOPERATIVE DIAGNOSIS: Acute and chronic cholecystitis. PROCEDURE: Laparoscopic cholecystectomy. ESTIMATED BLOOD LOSS: 30 mL. COMPLICATIONS: None. SURGEON: Terrence Abreu MD. CHOREOGRAPHY DIRECTOR: Yoseph Valente DO. INDICATIONS: The patient is a relatively healthy 47-year-old Afro-Tongan female with right upper quadrant pain, positive gallbladder and normal liver functions. DESCRIPTION OF PROCEDURE: In the operating room, the patient was prepped and draped, waiting 3 minutes, the draping occurred. The time-out was obtained where the patient was tested against name, number, procedure, laterality, my consent, her name, number, day and wrist band. The abdomen proceeded with a supraumbilical incision through the skin and subcutaneous tissues. A Veress needle was inserted and pressures were normal. A 3 L insufflated to a pressure about 10 and the Visiport was placed without issue. The gallbladder was inflamed and encased in the omentum. A xiphoid 5 and two lateral 5s were placed. The omentum was pulled off the gallbladder and it was aspirated removing about 60 mL of dark bilious material, which was cultured aerobically and anaerobically, drawing up in the fundus and eventually the infundibulum, they were pulled up into the right exposing biliary structures just beneath the infundibulum. The peritoneum on either side was pulled down exposing a presumptive cystic duct. The peritoneum on either side was pulled down nicely. The artery was little bit harder to find. It was found posteriorly on the right side of the screen, but rather deep. The cystic duct was immaculately cleaned showing a common duct that was inferiorly and going in towards the liver well away from this. The area was cleaned. The cystic artery was then cleaned circumferentially and the liver seen between, there was nothing in this area. Having achieved the view of safety, the cystic duct was doubly clipped and divided all the way from the common, which was clearly in view. This was divided exposing the cystic artery better which was doubly clipped and divided. The gallbladder taken off the liver bed using the cautery at 15. It was very edematous. It was taken off cleanly. There was a small lymphoid type nodule that was eventually included in the bag. The gallbladder and this nodule was placed in the bag after cautery was used to achieve hemostasis on the liver. This was taken out through the umbilicus with some dilation, but the infundibulum of the gallbladder was brought up in through the wound. It was opened and removed with a open sponge forceps. The abdomen was then copiously irrigated and dried. There was no bleeding. No bile. No damage to any of the organs. The incision was closed with #1 PDS in the umbilicus using a needle. The wound was injected with Marcaine. Subcuticular Biosyn closed with Dermabond. The patient was taken to the recovery room in good condition after the sponge and needle counts were declared correct. Terrence Abreu MD
[2017-09-06] MEDS: Ciprofloxacin 400mg/200ml D5W 400 MG/200 ML BAG IVPB SCH (09:00)
[2017-09-06] MEDS ORDERED: Potassium Chloride 20 mEq ER Tab PO ONE (10:03)
--- NOTE | 2017-09-06 10:16 | CP.PCM.PN ---
Subjective - Date & Time of Evaluation Date of Evaluation: 09/06/17 Time of Evaluation: 07:00 - Subjective Subjective: afeb denies pain no fever Objective - Vital Signs/Intake and Output Vital Signs (last 24 hours): Temp Pulse Resp BP Pulse Ox 98.3 F 89 18 119/79 99 09/06/17 08:02 09/06/17 09:00 09/06/17 08:02 09/06/17 09:00 09/06/17 08:02 - Medications Medications: Current Medications Acetaminophen (Tylenol 325mg Tab) 650 mg PO Q6 PRN PRN Reason: Fever >100.4 F Acetaminophen (Tylenol 650 Mg Supp) 650 mg [place] Q4 PRN PRN Reason: Fever >100.4 F Last Admin: 09/04/17 01:28 Dose: 650 mg Amlodipine Besylate (Norvasc) 5 mg PO DAILY [facility] Last Admin: 09/06/17 09:00 Dose: 5 mg Hydromorphone HCl (Dilaudid) 0.5 mg IVP Q3 PRN PRN Reason: Pain, moderate (4-7) Last Admin: 09/05/17 07:12 Dose: 0.5 mg Ciprofloxacin (Cipro 400mg/200ml Dsw) 400 mg in 200 mls @ 200 mls/hr IVPB Q12 МАРИЯ PRN Reason: Protocol Last Admin: 09/06/17 09:00 Dose: 200 mls/hr Metronidazole (Flagyl 500mg/100ml Ns) 100 mls @ 100 mls/hr IVPB Q8 МАРИЯ PRN Reason: Protocol Last Admin: 09/06/17 08:59 Dose: 100 mls/hr Lactated Ringer's (Lactated Ringer's) 1,000 mls @ 125 mls/hr IV .Q8H [facility] Last Admin: 09/05/17 20:55 Dose: 125 mls/hr Lactated Ringer's (Lactated Ringer's) 1,000 mls @ 100 mls/hr IV .Q10H [facility] Morphine Sulfate (Morphine) 4 mg IVP Q4 PRN PRN Reason: Pain, severe (8-10) Last Admin: 09/06/17 05:02 Dose: 4 mg Ondansetron HCl (Zofran Inj) 4 mg IVP Q6 PRN PRN Reason: Nausea/Vomiting Pantoprazole Sodium (Protonix Inj) 40 mg IVP DAILY [facility] Last Admin: 09/06/17 09:00 Dose: 40 mg - Labs Labs: 09/06/17 06:00 09/06/17 06:00 PT 12.2 Seconds (9.8-13.1) 09/03/17 09:53 INR 1.1 (0.9-1.2) 09/03/17 09:53 APTT 31.6 Seconds (25.6-37.1) 09/03/17 09:53 - Constitutional Appears: Non-toxic, Chronically Ill - Head Exam Head Exam: NORMOCEPHALIC - Eye Exam Eye Exam: PERRL - ENT Exam ENT Exam: Mucous Membranes Dry - Neck Exam Neck Exam: absent: Lymphadenopathy - Respiratory Exam Respiratory Exam: Decreased Breath Sounds - Cardiovascular Exam Cardiovascular Exam: REGULAR RHYTHM - GI/Abdominal Exam GI & Abdominal Exam: Distended, Soft - Rectal Exam Rectal Exam: Deferred Assessment and Plan (1) Cholecystitis Status: Acute - Assessment and Plan (Free Text) Assessment: all cultures neg for d/c home follow up with surgery
--- NOTE | 2017-09-06 10:43 | CP.PCM.PN ---
Subjective - Date & Time of Evaluation Date of Evaluation: 09/06/17 Time of Evaluation: 07:00 - Subjective Subjective: General Surgery - Dr. Abreu 47F patient seen and examined this AM 1 day s/p laparoscopic cholecystectomy. No acute events overnight. Denies any abdominal pain. Ambulating w/o issues. Denies N/V/D. Tolerating diet. No F/C. Objective - Vital Signs/Intake and Output Vital Signs (last 24 hours): Temp Pulse Resp BP Pulse Ox 98.3 F 89 18 119/79 99 09/06/17 08:02 09/06/17 09:00 09/06/17 08:02 09/06/17 09:00 09/06/17 08:02 - Medications Medications: Current Medications Acetaminophen (Tylenol 325mg Tab) 650 mg PO Q6 PRN PRN Reason: Fever >100.4 F Acetaminophen (Tylenol 650 Mg Supp) 650 mg [place] Q4 PRN PRN Reason: Fever >100.4 F Last Admin: 09/04/17 01:28 Dose: 650 mg Amlodipine Besylate (Norvasc) 5 mg PO DAILY [facility] Last Admin: 09/06/17 09:00 Dose: 5 mg Hydromorphone HCl (Dilaudid) 0.5 mg IVP Q3 PRN PRN Reason: Pain, moderate (4-7) Last Admin: 09/05/17 07:12 Dose: 0.5 mg Ciprofloxacin (Cipro 400mg/200ml Dsw) 400 mg in 200 mls @ 200 mls/hr IVPB Q12 МАРИЯ PRN Reason: Protocol Last Admin: 09/06/17 09:00 Dose: 200 mls/hr Metronidazole (Flagyl 500mg/100ml Ns) 100 mls @ 100 mls/hr IVPB Q8 МАРИЯ PRN Reason: Protocol Last Admin: 09/06/17 08:59 Dose: 100 mls/hr Lactated Ringer's (Lactated Ringer's) 1,000 mls @ 125 mls/hr IV .Q8H [facility] Last Admin: 09/05/17 20:55 Dose: 125 mls/hr Lactated Ringer's (Lactated Ringer's) 1,000 mls @ 100 mls/hr IV .Q10H [facility] Morphine Sulfate (Morphine) 4 mg IVP Q4 PRN PRN Reason: Pain, severe (8-10) Last Admin: 09/06/17 05:02 Dose: 4 mg Ondansetron HCl (Zofran Inj) 4 mg IVP Q6 PRN PRN Reason: Nausea/Vomiting Pantoprazole Sodium (Protonix Inj) 40 mg IVP DAILY [facility] Last Admin: 09/06/17 09:00 Dose: 40 mg - Labs Labs: 09/06/17 06:00 09/06/17 06:00 PT 12.2 Seconds (9.8-13.1) 09/03/17 09:53 INR 1.1 (0.9-1.2) 09/03/17 09:53 APTT 31.6 Seconds (25.6-37.1) 09/03/17 09:53 - Constitutional Appears: Non-toxic, No Acute Distress - Head Exam Head Exam: ATRAUMATIC, NORMAL INSPECTION - Eye Exam Eye Exam: EOMI, Normal appearance Pupil Exam: NORMAL ACCOMODATION - ENT Exam ENT Exam: Mucous Membranes Moist - Neck Exam Neck Exam: Normal Inspection - Respiratory Exam Respiratory Exam: NORMAL BREATHING PATTERN. absent: Respiratory Distress - Cardiovascular Exam Cardiovascular Exam: REGULAR RHYTHM - GI/Abdominal Exam GI & Abdominal Exam: Soft, Tenderness - Extremities Exam Extremities Exam: Full ROM - Neurological Exam Neurological Exam: Alert, Awake, Oriented x3 - Psychiatric Exam Psychiatric exam: Normal Affect, Normal Mood - Skin Skin Exam: Normal Color, Warm Assessment and Plan - Assessment and Plan (Free Text) Assessment: 47F POD#1 Laparoscopic Cholecystectomy Plan: -Regular diet -d/c IVF -Analgesics/anti-emetics prn -Encourage ambulation, IS -Stable for discharge per surgery -Patient to follow up with Dr. Abreu in 10-14 days Further recs per Dr. Abreu
--- NOTE | 2017-09-06 19:05 | CP.PCM.DIS ---
Provider - Provider Date of Admission: 09/03/17 11:14 Attending physician: Alhaji Fermin MD Consults: Dr. Granados, Dr. Mccain, Dr. Moreno, Time Spent in preparation of Discharge (in minutes): 30 Diagnosis - Discharge Diagnosis (1) Acute cholecystitis Status: Resolved Priority: Low Hospital Course - Lab Results Lab Results: Micro Results 09/03/17 11:59 Blood Blood Culture - Preliminary NO GROWTH AFTER 3 DAYS 09/03/17 11:15 Blood Blood Culture - Preliminary NO GROWTH AFTER 3 DAYS 09/05/17 12:00 Other: Please Indicate Gram Stain - Final 09/05/17 12:00 Other: Please Indicate Wound Culture - Preliminary NO GROWTH AFTER 24 HOURS Most Recent Lab Values WBC 11.4 K/uL (4.8-10.8) H 09/06/17 06:00 RBC 3.83 Mil/uL (3.80-5.20) 09/06/17 06:00 Hgb 10.4 g/dL (12.0-16.0) L 09/06/17 06:00 Hct 30.6 % (34.0-47.0) L 09/06/17 06:00 MCV 80.0 fl (81.0-99.0) L 09/06/17 06:00 MCH 27.1 pg (27.0-31.0) 09/06/17 06:00 MCHC 33.9 g/dL (33.0-37.0) 09/06/17 06:00 RDW 13.6 % (11.5-14.5) 09/06/17 06:00 Plt Count 284 K/uL (130-400) 09/06/17 06:00 MPV 8.1 fl (7.2-11.7) 09/06/17 06:00 Neut % (Auto) 80.6 % (50.0-75.0) H 09/06/17 06:00 Lymph % (Auto) 11.7 % (20.0-40.0) L 09/06/17 06:00 [place] % (Auto) 7.5 % (0.0-10.0) 09/06/17 06:00 Eos % (Auto) 0.0 % (0.0-4.0) 09/06/17 06:00 Baso % (Auto) 0.2 % (0.0-2.0) 09/06/17 06:00 Neut # (Auto) 9.1 K/uL (1.8-7.0) H 09/06/17 06:00 Lymph # (Auto) 1.3 K/uL (1.0-4.3) 09/06/17 06:00 [place] # (Auto) 0.8 K/uL (0.0-0.8) 09/06/17 06:00 Eos # (Auto) 0.0 K/uL (0.0-0.7) 09/06/17 06:00 Baso # (Auto) 0.0 K/uL (0.0-0.2) 09/06/17 06:00 ESR 62 mm/hr (0-20) H 09/04/17 20:43 PT 12.2 Seconds (9.8-13.1) 09/03/17 09:53 INR 1.1 (0.9-1.2) 09/03/17 09:53 APTT 31.6 Seconds (25.6-37.1) 09/03/17 09:53 Sodium 141 mmol/l (132-148) 09/06/17 06:00 Potassium 3.3 MMOL/L (3.6-5.0) L 09/06/17 06:00 Chloride 105 mmol/L (98-107) 09/06/17 06:00 Carbon Dioxide 25 mmol/L (22-30) 09/06/17 06:00 Anion Gap 14 (10-20) 09/06/17 06:00 BUN 7 mg/dl (7-17) 09/06/17 06:00 Creatinine 0.5 mg/dl (0.7-1.2) L 09/06/17 06:00 Est GFR ( Amer) > 60 09/06/17 06:00 Est GFR (Non-Af Amer) > 60 09/06/17 06:00 Random Glucose 133 mg/dL (65-105) H 09/06/17 06:00 Calcium 8.6 mg/dL (8.4-10.2) 09/06/17 06:00 Total Bilirubin 0.7 mg/dl (0.2-1.3) 09/06/17 06:00 AST 39 U/L (14-36) H D 09/06/17 06:00 ALT 36 U/L (9-52) 09/06/17 06:00 Alkaline Phosphatase 64 U/L (38-126) 09/06/17 06:00 Total Protein 6.5 G/DL (6.3-8.2) 09/06/17 06:00 Albumin 3.1 g/dL (3.5-5.0) L 09/06/17 06:00 Globulin 3.4 gm/dL (2.2-3.9) 09/06/17 06:00 Albumin/Globulin Ratio 0.9 (1.0-2.1) L 09/06/17 06:00 Lipase 26 U/L (23-300) 09/03/17 09:53 Urine Color Yellow (YELLOW) 09/03/17 09:53 Urine Clarity Cloudy (Clear) 09/03/17 09:53 Urine pH 7.0 (5.0-8.0) 09/03/17 09:53 Ur Specific [place] 1.027 (1.003-1.030) 09/03/17 09:53 Urine Protein 100 mg/dL (NEGATIVE) 09/03/17 09:53 Urine Glucose (UA) Neg mg/dL (Normal) 09/03/17 09:53 Urine Ketones Negative mg/dL (NEGATIVE) 09/03/17 09:53 Urine Blood Moderate (NEGATIVE) 09/03/17 09:53 Urine Nitrate Negative (NEGATIVE) 09/03/17 09:53 Urine Bilirubin Negative (NEGATIVE) 09/03/17 09:53 Urine Urobilinogen 0.2-1.0 mg/dL (0.2-1.0) 09/03/17 09:53 Ur Leukocyte Esterase Trace [place]ríg[place]/uL (Negative) 09/03/17 09:53 Urine RBC (Auto) 15 /hpf (0-3) H 09/03/17 09:53 Urine Microscopic WBC 5 /hpf (0-5) 09/03/17 09:53 Ur Squamous Epith Cells 1 /hpf (0-5) 09/03/17 09:53 Amorphous Sediment Rare /ul (<OCC) H 09/03/17 09:53 Urine Bacteria Rare (<OCC) 09/03/17 09:53 - Hospital Course Hospital Course: 47 yr old admitted for worsening abdominal pain and found to have acute cholecystitis. Patient had a laparoscopic cholecystectomy with no complications. Patient was able to tolerate PO diet, ambulate without difficulty , pain was controlled. Patient was discharged stable with instructions to take PO antibiotics as prescribed, followup with Dr. Moreno, Dr. Mccain and PMD Dr. Martin. - Date & Time of H&P Date of H&P: 09/04/17 Time of H&P: 11:03 Discharge Exam - Head Exam Head Exam: ATRAUMATIC, NORMAL INSPECTION - Eye Exam Eye Exam: Normal appearance - ENT Exam ENT Exam: Mucous Membranes Moist - Respiratory Exam Respiratory Exam: Clear to PA & Lateral, NORMAL BREATHING PATTERN - Cardiovascular Exam Cardiovascular Exam: REGULAR RHYTHM - GI/Abdominal Exam GI & Abdominal Exam: Normal Bowel Sounds, Soft. absent: Tenderness - Extremities Exam Extremities exam: full ROM - Neurological Exam Neurological exam: Alert, CN II-XII Intact (grossly intact), Oriented x3 - Psychiatric Exam Psychiatric exam: Normal Affect, Normal Mood - Skin Skin Exam: Dry, Normal Color, Warm Discharge Plan - Discharge Medications Prescriptions: Ciprofloxacin HCl [Cipro] 500 mg PO Q12 #10 tablet Metronidazole [Flagyl] 500 mg PO TID #15 tablet traMADol [Ultram] 50 mg PO Q6 #10 tab - Follow Up Plan Condition: STABLE Disposition: HOME/ ROUTINE Instructions: Cholecystectomy (DC), Cholecystectomy, Laparoscopic Surgery Additional Instructions: follow up with primary MD [address] moreno 1-2 weeks Referrals: [facility]GES,[place] [Other] Shailesh Mccain MD, PhD [Staff Provider] - Terrence Moreno MD [Staff Provider] -
== END 2017-09-06 13:35 | disposition home or self-care (01) | DRG 419 ==
LOC: H.ER 08:29 → H.ERHOLD 11:14 → H.MEDSURG1 12:54
PROVIDERS: ADMIT Family Medicine; ATTEND Family Medicine
PROC: 0FT44ZZ Resection of Gallbladder, Percutaneous Endoscopic Approach (ICD-10-PCS; principal; 2017-09-05 08:00)
DX: K81.2 Acute cholecystitis with chronic cholecystitis (principal); Z85.3 Personal history of malignant neoplasm of breast; F17.210 Nicotine dependence, cigarettes, uncomplicated; Z88.0 Allergy status to penicillin; Z90.13 Acquired absence of bilateral breasts and nipples; F12.90 Cannabis use, unspecified, uncomplicated; I10 Essential (primary) hypertension; R50.9 Fever, unspecified